=== PATIENT | female | born 1995 | race Caucasian/White ===

== ENCOUNTER 2016-06-09 05:49 | Emergency (ER) | payer OTHER ==
[~2016-06-09] VITALS: Ht 160 cm; Wt 59.0 kg
[2016-06-09] MEDS ORDERED: INSU100V16 SC (06:02)
[2016-06-09] MEDS ORDERED: PROMETHAZINE INJ 25 MG/ML (PHENERGAN) AMP IVP STA (06:02)
[2016-06-09] MEDS ORDERED: FAMOTIDINE 20MG/2ML IV (PEPCID) IV STA (06:02)
[2016-06-09] MEDS ORDERED: NS IV 1000 ML 1,000 ML IV ONE (06:02)
[2016-06-09 06:08] LABS: BASOPHILS % (AUTO) 0 % (0-10); EOSINOPHILS % (AUTO) 0 % (0-10); LYMPHOCYTES # (AUTO) 0.6 X 10^3 (1.0-4.0); LYMPHOCYTES % (AUTO) 5 % (12-44); MEAN CORPUSCULAR HEMOGLOBIN 32 PG (25-34); MEAN CORPUSCULAR HGB CONC 36 G/DL (32-36); MEAN CORPUSCULAR VOLUME 87 FL (80-99); MEAN PLATELET VOLUME 9.5 FL (7.4-10.4); MONOCYTES # (AUTO) 0.6 X 10^3 (0.0-1.0); MONOCYTES % (AUTO) 5 % (0-12); NEUTROPHILS # (AUTO) 11.3 X 10^3 (1.8-7.8); NEUTROPHILS % (AUTO) 90 % (42-75); PLATELET COUNT 244 10^3/uL (130-400); RED BLOOD COUNT 4.96 10^6/uL (4.35-5.85); RED CELL DISTRIBUTION WIDTH 11.9 % (10.0-14.5); WHITE BLOOD COUNT 12.6 10^3/uL (4.3-11.0)
[2016-06-09] MEDS ORDERED: ONDANSETRON 4 MG/2 ML (SDV) Z0FRAN IVP ONE (06:15)
--- NOTE | 2016-06-09 06:17 | ED GI ---
General Chief Complaint: Cough/Cold/Flu Symptoms Stated Complaint: DIABETIC,VOMITING,DIARRHEA Nursing Triage Note: FEVER, N/V/D, ABDOMINAL PAIN Sepsis Screen: Possible Sepsis Risk Source of Information: Patient, Family (MOM) History of Present Illness Time Seen By Provider: 06:00 Initial Comments C/O NAUSEA/VOMITING/DIARRHEA SINCE 0130 THIS AM FELT NAUSEATED WHEN SHE WENT TO BED AT 2300, BUT DID NOT START VOMITING UNTIL 0130 HAS ONLY VOMITED 2-3 TIMES AND NOW IS DRY HEAVES DIARRHEA X 1 C/O MILD EPIGASTRIC SORENESS NO FEVER STILL URINATING PT IS TYPE 1 DIABETIC SINCE AGE 13, HAS INSULIN PUMP. BLOOD GLUCOSE STARTED TO DROP AROUND 0200, SO DISCONNECTED IT FOR AN HOUR AND THEN STARTED IT AGAIN. LOWEST BLOOD GLUCOSE WAS 100 AT 0200, HIGHEST WAS 246 AT 0435. LAST HGB A1C WAS 5.5--SEES DR. CHÁVEZ AT [facility]--NEXT APPOINTMENT 06/11/16. MOM AND SISTER HAD THE SAME THING A COUPLE OF DAYS AGO--LASTED 48 HOURS. LMP 06/02/16. NORMAL. ON OCP'S PCP: DR. FORD NURSE PRACTITIONER: DR. CHÁVEZ, [facility] Allergies and Home Medications Allergies Coded Allergies: No Known Drug Allergies (Unverified , 06/09/16) Home Medications Insulin Aspart 100 Unit/1 Ml Susp #20 1 ML SC UD (Reported) Ondansetron 4 Mg Tab.rapdis #10 4 MG PO Q4H Prescribed by: VALERIANO MOSLEY on 06/09/16 0701 Promethazine HCl 25 Mg Supp.rect #10 25 MG RC Q4H Prescribed by: VALERIANO MOSLEY on 06/09/16 0701 Review of Systems Constitutional: No dizziness, malaise weakness EENTM: No Symptoms Reported Respiratory: No Symptoms Reported Cardiovascular: No Symptoms Reported Gastrointestinal: See HPI Abdominal Pain Diarrhea Nausea Poor Appetite Poor Fluid Intake Vomiting Genitourinary: No Symptoms Reported Musculoskeletal: no symptoms reported Skin: no symptoms reported Psychiatric/Neurological: No Symptoms Reported Endocrine: See HPI Hematologic/Lymphatic: No Symptoms Reported Past Bfkjoni-Ngpoih-Ojmjvd Hx Patient Social History Alcohol Use: Denies Use Recreational Drug Use: No Smoking Status: Never a Smoker 2nd Hand Smoke Exposure: No Recent Foreign Travel: No Contact w/Someone Who Travel: No Recent Infectious Disease Expo: No Recent Hopitalizations: No Immunizations Up To Date Tetanus Booster (TDap): Less than 5yrs PED Vaccines UTD: Yes Seasonal Allergies Seasonal Allergies: No Surgeries HX Surgeries: Yes Surgeries: Tonsillectomy Respiratory Hx Respiratory Disorders: No Cardiovascular Hx Cardiac Disorders: No Neurological Hx Neurological Disorders: No Reproductive System : No Hx Reproductive Disorders: No Genitourinary Hx Genitourinary Disorders: No Gastrointestinal Hx Gastrointestinal Disorders: No Musculoskeletal Hx Musculoskeletal Disorders: No Endocrine Hx Endocrine Disorders: Yes (IDDM-DX AGE 13. CURRENTLY HAS AN INSULIN PUMP) Endocrine Disorders: Diabetes, Insulin dep HEENT HX ENT Disorders: No Cancer Hx Cancer: No Psychosocial Hx Psychiatric Problems: No Integumentary HX Skin/Integumentary Disorder: No Blood Transfusions Hx Blood Disorders: No Physical Exam Vital Signs VS - Last 72 Hours, by Label 06/09/16 06/09/16 06/09/16 06:03 06:11 07:10 Temp 96.9 96.9 Pulse 108 95 Resp 18 16 B/P 143/89 Pulse Ox 97 97 O2 Delivery Room Air Room Air Capillary Refill : Less Than 3 Seconds General Appearance: WD/WN other (LOOKS ILL) HEENT: other (ORAL MUCOSA SLIGHTLY DRY) Neck: normal inspection Respiratory: normal breath sounds no respiratory distress no accessory muscle use Cardiovascular: no murmur tachycardia Gastrointestinal: normal bowel sounds soft no organomegaly no pulsatile massNo distended, No guarding, No rebound, tenderness (MILD EPIGASTRIC TENDERNESS) Back: no CVA tenderness Neurologic/Psychiatric: food service aide II-XII nml as tested no motor/sensory deficits alert oriented x 3 Skin: warm/dry pallor Progress/Results/Core Measures Results/Orders Lab Results Laboratory Tests Test 06/09/16 06:00 06/09/16 06:12 Range/Units Alanine Aminotransferase (ALT/SGPT) 17 0-55 U/L Albumin 4.4 3.2-4.5 G/DL Alkaline Phosphatase 48 40-136 U/L Amylase Level 94 25-125 U/L Anion Gap 14 5-14 MMOL/L Aspartate Amino Transf (AST/SGOT) 20 5-34 U/L BUN/Creatinine Ratio 14 Band Neutrophils 8 % Basophils # (Auto) 0.0 0.0-0.1 10^3/uL Basophils % (Manual) 0 % Basophils (%) (Auto) 0 0-10 % Blood Morphology Comment NORMAL Blood Urea Nitrogen 12 7-18 MG/DL Calcium Level 9.3 8.5-10.1 MG/DL Carbon Dioxide Level 20 L 21-32 MMOL/L Chloride Level 102 98-107 MMOL/L Creatinine 0.88 0.60-1.30 MG/DL Eosinophils # (Auto) 0.0 0.0-0.3 10^3/uL Eosinophils % (Manual) 0 % Eosinophils (%) (Auto) 0 0-10 % Estimat Glomerular Filtration Rate > 60 Glucose Level 255 H 70-105 MG/DL Hematocrit 43 35-52 % Hemoglobin 15.6 11.5-16.0 G/DL Lipase 10 8-78 U/L Lymphocytes # (Auto) 0.6 L 1.0-4.0 X 10^3 Lymphocytes % (Manual) 4 % Lymphocytes (%) (Auto) 5 L 12-44 % Mean Corpuscular Hemoglobin 32 25-34 PG Mean Corpuscular Hemoglobin Concent 36 32-36 G/DL Mean Corpuscular Volume 87 80-99 FL Mean Platelet Volume 9.5 7.4-10.4 FL Monocytes # (Auto) 0.6 0.0-1.0 X 10^3 Monocytes % (Manual) 8 % Monocytes (%) (Auto) 5 0-12 % Neutrophils # (Auto) 11.3 H 1.8-7.8 X 10^3 Neutrophils % (Manual) 78 % Neutrophils (%) (Auto) 90 H 42-75 % Platelet Count 244 130-400 10^3/uL Potassium Level 4.7 3.6-5.0 MMOL/L Reactive Lymphocytes 2 % Red Blood Count 4.96 4.35-5.85 10^6/uL Red Cell Distribution Width 11.9 10.0-14.5 % Serum Test, Qualitative NEGATIVE NEGATIVE Sodium Level 136 135-145 MMOL/L Total Bilirubin 1.1 H 0.1-1.0 MG/DL Total Protein 7.1 6.4-8.2 G/DL White Blood Count 12.6 H 4.3-11.0 10^3/uL Urine Bacteria TRACE /HPF Urine Bilirubin NEGATIVE NEGATIVE Urine Casts NONE /LPF Urine Clarity CLEAR Urine Color YELLOW Urine Crystals NONE /LPF Urine Culture Indicated NO Urine Glucose (UA) 4+ H NEGATIVE Urine Ketones 4+ H NEGATIVE Urine Leukocyte Esterase NEGATIVE NEGATIVE Urine Mucus NEGATIVE /LPF Urine Nitrite NEGATIVE NEGATIVE Urine Protein NEGATIVE NEGATIVE Urine RBC NONE /HPF Urine RBC (Auto) NEGATIVE NEGATIVE Urine Specific [place] 1.020 1.016-1.022 Urine Squamous Epithelial Cells 2-5 /HPF Urine Urobilinogen NORMAL NORMAL MG/DL Urine WBC NONE /HPF Urine pH 8 5-9 My Orders Orders-VALERIANO MOSLEY DO Saline Lock/Iv-Start (06/09/16 06:02) Amylase (06/09/16 06:02) Cbc With Automated Diff (06/09/16 06:02) Comprehensive Metabolic Panel (06/09/16 06:02) Hcg,Qualitative Serum (06/09/16 06:02) Lipase (06/09/16 06:02) Ua Culture If Indicated (06/09/16 06:02) Promethazine Injection (Phenergan Injec (06/09/16 06:02) Ondansetron Injection (Zofran Injectio (06/09/16 06:15) Famotidine Injection (Pepcid Injection) (06/09/16 06:02) Saline Lock/Iv-Start (06/09/16 06:02) Ns Iv 1000 Ml (Sodium Chloride 0.9%) (06/09/16 06:02) Manual Differential (06/09/16 06:00) Medications Given in ED Vital Signs/I&O Vital Sign - Last 12Hours 06/09/16 06/09/16 06/09/16 06:03 06:11 07:10 Temp 96.9 96.9 Pulse 108 95 Resp 18 16 B/P 143/89 Pulse Ox 97 97 O2 Delivery Room Air Room Air Blood Pressure Mean: 107 Progress Note : Progress Note NO VOMITING OR DIARRHEA DURING ER STAY NAUSEA AND EPIGASTRIC DISCOMFORT IMPROVED WITH MEDICATIONS PT TOLERATING WATER AND ICE CHIPS PRIOR TO DISMISSAL MOM COMFORTABLE TAKING PT HOME Departure Impression Impression: Primary Impression: Gastroenteritis Additional Impression: Type 1 diabetes mellitus Disposition: 01 HOME, SELF-CARE Condition: Improved Departure-Patient Inst. Referrals: HARSHAL FORD MD (PCP) Primary Care Physician Patient Instructions: Sick Day Management for Diabetics, Viral Gastroenteritis , Adult (DC) Add. Discharge Instructions: CLEAR LIQUIDS--WATER, BROTH, JELLO, GATORADE WHEN NAUSEA IS BETTER AND YOU ARE TOLERATING LIQUIDS, ADD BRATS DIET TO CLEAR LIQUIDS--BANANAS, RICE, APPLESAUCE, TOAST, SALTINES FOLLOW UP WITH YOUR DR TOMORROW IF NO BETTER, RETURN TO ER IF WORSE All discharge instructions reviewed with patient and/or family. Voiced understanding. Scripts Promethazine HCl (Phenergan)25 Mg Supp.rect25 Mg RC Q4H Nausea/Vomiting #10 SUPP.RECT Prov:VALERIANO MOSLEY DO 06/09/16 Ondansetron (Zofran Odt)4 Mg Tab.rapdis4 Mg PO Q4H Nausea/Vomiting #10 TAB Prov:VALERIANO MOSLEY DO 06/09/16 VALERIANO MOSLEY DO Jun 09, 2016 06:16 Patient Instructions: Sick Day Management for Diabetics, Viral Gastroenteritis , Adult (DC) Add. Discharge Instructions: CLEAR LIQUIDS--WATER, BROTH, JELLO, GATORADE WHEN NAUSEA IS BETTER AND YOU ARE TOLERATING LIQUIDS, ADD BRATS DIET TO CLEAR LIQUIDS--BANANAS, RICE, APPLESAUCE, TOAST, SALTINES FOLLOW UP WITH YOUR DR TOMORROW IF NO BETTER, RETURN TO ER IF WORSE All discharge instructions reviewed with patient and/or family. Voiced understanding. Scripts Promethazine HCl (Phenergan)25 Mg Supp.rect25 Mg RC Q4H Nausea/Vomiting #10 SUPP.RECT Prov:VALERIANO MOSLEY DO 06/09/16 Ondansetron (Zofran Odt)4 Mg Tab.rapdis4 Mg PO Q4H Nausea/Vomiting #10 TAB Prov:VALERIANO MOSLEY DO 06/09/16 VALERIANO MOSLEY DO Jun 09, 2016 06:16
[2016-06-09 06:19] LABS: BILIRUBIN,URINE NEGATIVE (NEGATIVE); KETONES,URINE 4+ (NEGATIVE); LEUKOCYTE ESTERASE ,URINE NEGATIVE (NEGATIVE); NITRITE,URINE NEGATIVE (NEGATIVE); PH,URINE 8 (5-9); PROTEIN,URINE NEGATIVE (NEGATIVE); UROBILINOGEN,URINE NORMAL (NORMAL)
[2016-06-09 06:23] LABS: BAND NEUTROPHILS 8 %; BASOPHILS % (MANUAL) 0 %; EOSINOPHILS % (MANUAL) 0 %; LYMPHOCYTES % (MANUAL) 4 %; NEUTROPHILS % (MANUAL) 78 %; REACTIVE LYMPHOCYTES 2 %
[2016-06-09 06:28] LABS: ALANINE AMINOTRANSFERASE 17 U/L (0-55); ALBUMIN 4.4 G/DL (3.2-4.5); AMYLASE 94 U/L (25-125); ANION GAP 14 MMOL/L (5-14); ASPARTATE AMINO TRANSFERASE 20 U/L (5-34); BILIRUBIN,TOTAL 1.1 MG/DL (0.1-1.0); BLOOD UREA NITROGEN 12 MG/DL (7-18); BUN/CREATININE RATIO 14; CALCIUM 9.3 MG/DL (8.5-10.1); CARBON DIOXIDE 20 MMOL/L (21-32); CHLORIDE 102 MMOL/L (98-107); CREATININE SERUM 0.88 MG/DL (0.60-1.30); GFR ESTIMATED > 60; GLUCOSE 255 MG/DL (70-105); LIPASE 10 U/L (8-78); POTASSIUM 4.7 MMOL/L (3.6-5.0); SODIUM 136 MMOL/L (135-145); TOTAL PROTEIN 7.1 G/DL (6.4-8.2)
[2016-06-09] MEDS ORDERED: ONDA4TAB8 PO (07:01)
[2016-06-09] MEDS ORDERED: PROM25SU43 RC (07:01)
[2016-06-09 07:10] VITALS: BP 130/74
--- OUTSIDE RECORDS SUMMARY | 2016-06-09 13:05 | XMS REPORT | Continuity of Care Document ---
Author Author Interface Organization Interface Address Unknown Phone Unavailable Problems Problem Status Onset Date Classification Date Reported Comments Source Diabetes mellitus type 1 (disorder) Active Problem 2014 [facility] Medications Medication Details Route Status Patient Instructions Ordering Provider Order Date Source Glucagon Emergency Kit 1 kit, IM, 1 time only, Use for severe low blood glucose, # 1 kit, Refill(s) 1, Pharmacy: [facility] </br>Use for severe low blood glucose Active [facility] Ketostix Test Strips 50 ct Bottle 1 stick, Urine, per protocol, Used to test urine ketones when blood glucose is greater than 250, Supply 30 day(s), Refill(s) 5, Pharmacy: [facility] </br>Used to test urine ketones when blood glucose is greater than 250 Active [facility] NovoLOG 100 units/mL subcutaneous solution =75 unit, Subcutaneous, qDay, Use with insulin pump, # 30 mL, Refill(s) 5, Pharmacy: [facility] </br>Use with insulin pump Active [facility] Fluzone 03/28/12 14:35:00 [employer], [facility] Pharm[facility], Routine , 0.5 mL, IM, Injection, 1 time only, Stop date 03/28/12 14:35:00 CSTRefrigerate. For IM administration only. Influenza Virus Vaccine, inactivated. Patient Charge. Manufacturer MED ID: [id number] Inactive [facility] Continuous Glucose Monitoring Supplies 1 device, Other -(see comments), Other-see comments, CGM starter kit, sensors, transmitters and supplies., # 1 EA, Refill(s) 3, called to pharmacy (Rx) </br>CGM starter kit, sensors, transmitters and supplies. Active [facility] Contour Next Test Strips 50 ct Box =1 strip, Finger Tip, Other-see comments, 10 times a day. Dispense 18 boxes., Supply 90 day(s), Refill(s) 1, Pharmacy: [facility] </br>10 times a day. Dispense 18 boxes. Active [facility] H1N1 vaccine injection, inactivated 03/09/09 12:46:00 [employer], [facility] (Pharmacy), Routine, 0.5 mL, IM, Injection, 1 time only, Stop date 03/09/09 12:46:00 CSTThis formulation can be given to patients greater than 3 years of age. For IM administration only. Influenza Virus Vaccine, H1N1 inactivated MED ID: [id number] Inactive [facility] Pump Supplies 1 device, Other-(see comments), Other- see comments, # 30 EA, Refill(s) 3, other reason (Rx) Active [facility] BD Ultrafine Lancets 200 ct box 1 device, Affected Area(s), 4 times a day, Used to test blood glucose, # 30 day(s), Refill(s) 5, Pharmacy: [facility] </br>Used to test blood glucose Active [facility] BD 5 mm Pen [place] 100 ct Box =1 syringe, Subcutaneous, Other-see comments, 6 times per day. Use a new needle with each injeciton. Dispense 2 boxes., Supply 30 day(s), Refill(s) 5, Pharmacy: [facility] </br>6 times per day. Use a new needle with each injeciton. Dispense 2 boxes. Active [facility] NovoLog FlexPen 100 units/mL subcutaneous solution 5 ct box =10 unit, Subcutaneous, qDay, give 1 unit per 12g carohydrate with all meals and snacks when off pump, # 15 mL, Refill(s) 5, Pharmacy: [facility] </br>give 1 unit per 12g carohydrate with all meals and snacks when off pump Active [facility] NovoLog 100 units/mL subcutaneous solution =75 unit, Subcutaneous, qDay, Use with insulin pump, # 30 mL, Refill(s) 5, Pharmacy: [facility] </br>Use with insulin pump Active [facility] Allergies, Adverse Reactions, Alerts Substance Category Reaction Severity Reaction type Status Date Reported Comments Source Immunizations Immunization Date Given Site Status Last Updated Comments Source H1N1, inactivated (TIV) 03/09/2009 completed [facility] influenza virus, inactivated (TIV) 03/28/2012 completed [facility] Flu vaccine reported-w/o vaccine record 03/20/2013 completed [facility] Flu vaccine reported-w/o vaccine record 03/19/2014 completed [facility] Results Order Name Results Value Reference Range Date Interpretation Comments Source Hgb A1c Hemoglobin A1c 8.4 % 4.0 - 6.0 09/12/2013 [facility] Hgb A1c POC Hemoglobin A1c (POC) 7.5 % 4.0 - 6.0 2014 [facility] Hgb A1c POC Hemoglobin A1c (POC) 7.2 % 4.0 - 6.0 2014 [facility] Hgb A1c POC Hemoglobin A1c (POC) 7.4 % 4.0 - 6.0 2014 [facility] Hgb A1c Hemoglobin A1c 7.9 % 4.0 - 6.0 08/10/2014 [facility] Hgb A1c Hemoglobin A1c 7.5 % 4.0 - 6.0 01/12/2014 [facility] Vital Signs Vital Sign Value Date Comments Source Encounters Location Location Details Encounter Type Encounter Number Reason For Visit Attending Provider ADM Date DC Date Status Source [facility] REF [id number] F/U DM Aris Anderson 09/07/2013 [facility] REF [id number] labs Aris Anderson 09/07/2013 [facility] REF [id number] labs Dakota Will 06/05/2012 06/05/2012 [facility] REF [id number] lab outreach Sharon Shook DO 02/16/2013 02/16/2013 [facility] CMB CMB REF [id number] Sharon Shook DO 02/16/20132012 [facility] CMB CMB REF [id number] Gretchen Hatfield 04/01/2015 04/01/2015 [facility] CMB CMB REF [id number] Gretchen Hatfield 04/01/2015 04/01/2015 [facility] CMB CMB REF [id number] Corrine Dileepan 12/13/20142014 [facility] CMB CMB REF [id number] Corrine Dileepan 12/13/20142014 [facility] CMB CMB REF [id number] Corrine Dileepan 08/09/20142014 [facility] CMB CMB REF [id number] Corrine Dileepan 08/09/20142014 [facility] CMB CMB REF [id number] Sharon Shook DO 06/15/20132013 [facility] CMB CMB REF [id number] labs Sharon Shook DO 06/15/2013 06/15/2013 [facility] CMB CMB REF [id number] labs Corrine Dileepan 01/11/2014 01/11/2014 [facility] CMB REF [id number] Corrine Dileepan 01/11/20142013 [facility] Procedures Procedure Code Date Perfomer Comments Source
== END 2016-06-09 07:10 | disposition home or self-care (01) ==
LOC: EDUNIT# 05:49 → ER 05:53
DX: K52.9 Noninfective gastroenteritis and colitis, unspecified (principal); E10.9 Type 1 diabetes mellitus without complications; Z96.41 Presence of insulin pump (external) (internal)
CPT/HCPCS: 36415; 80053; 81000; 82150; 83690; 84703; 85007; 85027; 96361; 96374; 96375

== ENCOUNTER 2021-02-27 09:42 | Outpatient (CLI) | payer BC, OTHER ==
[~2021-02-27] VITALS: Ht 160 cm; Wt 64.4 kg
[~2021-02-27 09:42] MED LIST: INSU100V16 SC; ONDA4TAB8 PO; PROM25SU43 RC
[2021-02-27] MEDS ORDERED: EPINEPHrine INJECTION 1 MG/ML AMP IM PRN (09:45)
[2021-02-27] MEDS ORDERED: ONDANSETRON 4 MG/2 ML (SDV) Z0FRAN IV PRN (09:45)
[2021-02-27] MEDS ORDERED: CASIRIVIMAB/IMDEVIMAB 1,200 MG in NS (IVPB) 250 ML IV ONE (09:45)
[2021-02-27] MEDS ORDERED: ACETAMINOPHEN 500 MG TAB (TYLENOL) PO PRN (09:45)
[2021-02-27] MEDS ORDERED: diphenhydrAMINE 50 MG/ML INJ (BENADRYL) IV PRN (09:45)
[2021-02-27 09:54] VITALS: BP 129/79
[2021-02-27 11:30] VITALS: BP 122/77
== END 2021-02-27 11:34 | disposition home or self-care (01) ==
LOC: INFUSION 09:42
PROVIDERS: ATTEND Nurse Practitioner Family
DX: U07.1 COVID-19 (principal)